=== PATIENT | female | born 1985 | race Caucasian/White ===

== ENCOUNTER 2017-11-12 10:23 | Emergency (ER) | payer OTHER ==
[~2017-11-12] VITALS: Ht 165.1 cm; Wt 83.9 kg
[2017-11-12] MEDS ORDERED: VISTARIL 25 MG25 M1 PO (10:35)
[2017-11-12] MEDS ORDERED: [UNRECOGNIZED DRUG - OTHER] (10:36)
[2017-11-12] MEDS ORDERED: LAMICTAL100 MG PO ×2 (10:36→10:37)
[2017-11-12] MEDS ORDERED: AMBIEN 5 MG TABL5 M1 PO (10:37)
[2017-11-12] MEDS ORDERED: BRINTELLIX20 MG PO (10:37)
[2017-11-12] MEDS ORDERED: CLONAZEPAM 0.50.5 M1 PO (10:38)
[2017-11-12 11:11] LABS: ABSOLUTE BASOPHILS 0.1 thou/uL (0.0-0.2); ABSOLUTE EOSINOPHILS 0.1 thou/uL (0.0-0.7); ABSOLUTE LYMPHOCYTES 4.3 thou/uL (0.8-5.3); ABSOLUTE MONOCYTES 0.8 thou/uL (0.0-1.2); ABSOLUTE NEUTROPHILS 5.6 thou/uL (1.6-8.1); EOSINOPHILS 1.3 %; HEMATOCRIT 44.4 % (37.0-47.0); LYMPHOCYTES 39.6 %; MCH 31.9 pg (26.0-34.0); MCHC 33.7 g/dL (28.0-37.0); MCV 94.4 fL (80.0-100.0); MONOCYTES 7.1 %; NUCLEATED RBCS 0 /100WBC; PLATELET COUNT* 312 thou/uL (150-400)
[2017-11-12 11:29] LABS: CALCIUM 9.1 mg/dL (8.5-10.1); CREATININE 0.8 mg/dL (0.6-1.3); POTASSIUM 4.1 mmol/L (3.5-5.1)
[2017-11-12 11:34] LABS: ALBUMIN 3.6 g/dL (3.4-5.0); SALICYLATE < 2.8 mg/dL (2.8-20.0); TOTAL BILIRUBIN 0.1 mg/dL (<0.1-1.0); TOTAL PROTEIN 7.8 g/dL (6.4-8.2)
[2017-11-12 11:37] LABS: ACETAMINOPHEN < 2 ug/mL (10-30); ALCOHOL < 10 mg/dL (<10)
[2017-11-12 11:45] LABS: URINE BILIRUBIN NEGATIVE (Negative); URINE BLOOD 2+ (Negative); URINE CLARITY CLEAR; URINE COLOR YELLOW; URINE GLUCOSE-RANDOM NEGATIVE (Negative); URINE KETONES NEGATIVE (Negative); URINE LEUKOCYTES-REFLEX 1+ (Negative); URINE NITRITE-REFLEX NEGATIVE (Negative); URINE PROTEIN NEGATIVE (Negative); URINE UROBILINOGEN 0.2 E.U./dl (0.2-1.0)
[2017-11-12 11:52] LABS: BACTERIA-REFLEX >30 Many /HPF (None Seen); CASTS None Seen /LPF (None Seen); CRYSTALS None Seen /LPF (None Seen); SQUAMOUS 4-10 Moderate /LPF (0-3); URINE RBC None Seen /HPF (0-2); URINE WBC-REFLEX 0-5 Rare /HPF (0-5)
[2017-11-12 11:53] LABS: AMP/METHAMP Negative (Negative); BARBITURATES Negative (Negative); BENZODIAZEPINES Negative (Negative); COCAINE Negative (Negative); METHADONE Negative (Negative); OPIATES Negative (Negative); PCP Negative (Negative); THC Negative (Negative)
--- NOTE | 2017-11-12 15:01 | EKG ---
[place] [address] ELECTROCARDIOGRAM REPORT Name: KATERYNA MILLS Room: [facility]#: [id number] Admission: 11/12/17 Attend Phys: Discharge: Date of : 81 Report #: [id number] THIS REPORT FOR: //name// [facility] ED Test Date: 2017-11-12 Test Time: 11:02:20 Pat Name: KATERYNA MILLS Department: Room: Gender: F Gold Stamper: CHERELLE : 1985 Requested By: Pj Kendall Order Number: [id number] MD: Cyril Mckeon Measurements Intervals [place] Rate: 107 P: 38 WV: 152 QRS: 62 QRSD: 96 T: 22 QT: 368 QTc: 491 Interpretive Statements Sinus tachycardia Probable left atrial enlargement RSR' in V1 or V2, right VCD or RVH Borderline prolonged QT interval No previous ECG available for comparison Electronically Signed On 11-12-2017 15:00:51 CDT by Cyril Mckeon [email or web address] <ELECTRONICALLY SIGNED> By: Cyril Mckeon MD, [facility] 11/12/17 1500 01 01 Cyril Mckeon MD, FACC /EPI
[2017-11-12] MEDS ORDERED: BACTRIM DS TAB1 EACH PO (15:07)
[2017-11-12 21:15] VITALS: BP 134/78
== END 2017-11-12 21:15 ==
LOC: M.ERS 10:23
PROVIDERS: Emergency Medicine Emergency Medical Services
DX: R45.851 Suicidal ideations (principal); F32.9 Major depressive disorder, single episode, unspecified; Z88.5 Allergy status to narcotic agent; Z88.8 Allergy status to other drugs, medicaments and biological substances